=== PATIENT | male | born 1945 | race Caucasian/White ===

== ENCOUNTER → 2025-07-07 | Outpatient (CLI) | payer OTHER, MEDICARE | LOC: M RAD 14:22 | PROVIDERS: ATTEND Family Medicine | DX: R42 Dizziness and giddiness (principal); G31.9 Degenerative disease of nervous system, unspecified; R90.82 White matter disease, unspecified; J32.4 Chronic pansinusitis; H70.93 Unspecified mastoiditis, bilateral ==

== ENCOUNTER 2025-09-17 08:09 | Day surgery (SDC) | payer MEDICARE, OTHER ==
[~2025-09-17] VITALS: Ht 172.7 cm; Wt 70.3 kg
[~2025-09-17 08:09] MED LIST: METF500T13 PO; SEMA1PEN2 SQ; SIMV20TA22 PO; VALS1TAB66 PO
[2025-09-17] MEDS ORDERED: dexAMETHasone 4 MG/ML 1 ML VIAL As Ordered ONE (08:37)
[2025-09-17] MEDS: LR 1,000 ML IV SCH (08:37)
[2025-09-17] MEDS ORDERED: ONDANSETRON 4MG/2ML VIAL As Ordered ONE (08:37)
[2025-09-17] MEDS ORDERED: LIDOCAINE 2% 100 MG/5 ML SDV (FOR ANES.) As Ordered ONE (08:37)
[2025-09-17] MEDS ORDERED: KETOROLAC 30 MG/ML 1 ML VIAL As Ordered ONE (08:37)
[2025-09-17] MEDS ORDERED: OXYB5TAB14 PO (09:25)
[2025-09-17] MEDS ORDERED: CIPR-249 PO (09:25)
[2025-09-17] MEDS: ceFAZolin SOD 2 GM IV ONCE IV ONE (09:35)
[2025-09-17] MEDS ORDERED: FUROSEMIDE 100 MG/10 ML VIAL As Ordered ONE (10:21)
[2025-09-17] MEDS ORDERED: ACETAMINOPHEN 1000MG/100ML IV BAG As Ordered ONE (10:22)
[2025-09-17] MEDS ORDERED: LR 1,000 ML IV SCH (10:40)
[2025-09-17] MEDS ORDERED: HYDROMORPHONE HCL 0.5 MG/0.5 ML SYRINGE IV PRN (10:40)
[2025-09-17] MEDS ORDERED: ONDANSETRON 4MG/2ML VIAL IV PRN (10:40)
[2025-09-17] MEDS ORDERED: ACETAMINOPHEN 325 MG TAB PO PRN (11:15)
[2025-09-17 12:30] VITALS: BP 171/75; TEMP 96.9; O2SAT 96
== END 2025-09-17 12:35 | disposition home or self-care (01) ==
LOC: M SDC 08:09
PROVIDERS: ATTEND Urology
DX: N40.1 Benign prostatic hyperplasia with lower urinary tract symptoms (principal); N13.8 Other obstructive and reflux uropathy; E11.9 Type 2 diabetes mellitus without complications; I10 Essential (primary) hypertension; E78.00 Pure hypercholesterolemia, unspecified; K58.9 Irritable bowel syndrome, unspecified; Z79.899 Other long term (current) drug therapy; Z79.85 Long-term (current) use of injectable non-insulin antidiabetic drugs; Z79.84 Long term (current) use of oral hypoglycemic drugs; Z85.828 Personal history of other malignant neoplasm of skin; Z92.3 Personal history of irradiation
CPT/HCPCS: 52601; J0131; J0688; J1100; J1885; J1938; J2405; J3010

== ENCOUNTER → 2025-10-31 | Outpatient (CLI) | payer OTHER, MEDICARE ==
[~2025-10-31] MED LIST changes: +CIPR-249 PO; +OXYB5TAB14 PO
[2025-10-31 13:43] LABS: VITAMIN B12 LEVEL 709 PG/ML (211-911)
[2025-10-31 14:08] LABS: ESTIMATED AVERAGE GLUCOSE 166.0 MG/DL (60-110)
[2025-11-01 18:12] LABS: T P ELECTROPHORESIS SO 6.1 g/dL (6.1-8.1)
== END ==
LOC: M WUC 10:47
PROVIDERS: ATTEND Psychiatry & Neurology Neurology
DX: E11.40 Type 2 diabetes mellitus with diabetic neuropathy, unspecified (principal)